=== PATIENT | female | born 1975 ===

== ENCOUNTER 2016-11-28 08:49 | Inpatient (IN) | payer MEDICARE ==
[2016-11-28 09:11] VITALS: BMI 29.2
[2016-11-28 09:25] LABS: BASO % 0.7 % (0.0-2.0); EOS % 0.6 % (0.0-4.0); HEMATOCRIT 37.1 % (34.0-47.0); LYMPH # 0.6 K/uL (1.0-4.3); LYMPH % 11.7 % (20.0-40.0); MEAN CELL VOLUME 94.7 fL (81.0-99.0); MEAN CORPUSCULAR HEMOGLOBIN 31.6 pg (27.0-31.0); MEAN CORPUSCULAR HGB CONC 33.3 g/dL (33.0-37.0); MONO # 0.4 K/uL (0.0-0.8); MONO % 7.7 % (0.0-10.0); WHITE BLOOD COUNT 4.8 K/uL (4.8-10.8)
[2016-11-28 09:27] LABS: CHLORIDE 95 mmol/L (98-107); POTASSIUM 3.4 mmol/L (3.6-5.2); SODIUM 130 mmol/L (132-148)
[2016-11-28 09:30] LABS: ALKALINE PHOSPHATASE 119 U/L (38-126); ALT/SGPT 75 U/L (9-52); AST/SGOT 199 U/L (14-36); BILIRUBIN,TOTAL 1.8 mg/dL (0.2-1.3); BLOOD UREA NITROGEN 10 mg/dL (7-17); CALCIUM 9.4 mg/dl (8.6-10.4); CARBON DIOXIDE 23 mmol/L (22-30); GFR AFRICAN-AMERICAN > 60; GLUCOSE,RANDOM 105 mg/dL (65-105); TOTAL PROTEIN 9.2 g/dL (6.3-8.3)
[2016-11-28 09:31] LABS: ALCOHOL SERUM < 10 mg/dl (0-10)
[2016-11-28 09:59] LABS: RBC URINE 5 /hpf (0-3); URINE BACTERIA MANY (<OCC); URINE BILIRUBIN NEGATIVE (NEGATIVE); URINE BLOOD 1+ (NEGATIVE); URINE COLOR Amber (YELLOW); URINE GLUCOSE (UA) NORMAL (Normal); URINE KETONE 1+ mg/dL (NEGATIVE); URINE LEUKOCYTE ESTERASE 2+ Leu/uL (Negative); URINE PROTEIN 1+ mg/dL (NEGATIVE); WBC URINE 19 /hpf (0-5)
[2016-11-28] MEDS ORDERED: Pantoprazole 40 mg EC Tab PO STA (09:59)
[2016-11-28] MEDS ORDERED: Pantoprazole 40 mg EC Tab PO ONE (10:19)
[2016-11-28 14:16] LABS: CHLORIDE 96 mmol/L (98-107)
[2016-11-28 14:17] LABS: POTASSIUM 3.6 mmol/L (3.6-5.2); SODIUM 129 mmol/L (132-148)
[2016-11-28 14:19] LABS: ALKALINE PHOSPHATASE 112 U/L (38-126); AST/SGOT 174 U/L (14-36); BILIRUBIN,TOTAL 1.6 mg/dL (0.2-1.3); BLOOD UREA NITROGEN 8 mg/dL (7-17); CARBON DIOXIDE 26 mmol/L (22-30); GFR AFRICAN-AMERICAN > 60; TOTAL PROTEIN 8.6 g/dL (6.3-8.3)
[2016-11-28 14:20] LABS: ALT/SGPT 69 U/L (9-52); CALCIUM 9.2 mg/dl (8.6-10.4); GLUCOSE,RANDOM 138 mg/dL (65-105)
--- NOTE | 2016-11-28 16:13 | C.PDOC ---
History Of Present Illness 41 y/o female brought to ED via [facility] for evaluation of suicidal ideation. As per EMS, pt ingested about 10 Tramadol pills last night and attempted to hang herself today. Pt admits to alcohol abuse. Otherwise, denies any active physical complaints at this time. No HI. Time Seen by Provider: 11/28/16 09:11 Chief Complaint (Nursing): Psychiatric Evaluation History Per: Patient History/Exam Limitations: no limitations Onset/Duration Of Symptoms: Days, Gradual Current Symptoms Are (Timing): Still Present Suicide/Self Injury Attempted (Context): Ingestion Severity: None Pain Scale Rating Of: 0 Associated Symptoms: Suicidal Thoughts Involuntary Hold By: None Recent travel outside of the [place]: No Additional History Per: EMS Past Medical History Reviewed: Historical Data, Nursing Documentation, Vital Signs Vital Signs: Last Vital Signs Temp 99.2 F 11/28/16 15:46 Pulse 92 H 11/28/16 15:46 Resp 18 11/28/16 15:46 BP 130/90 11/28/16 15:46 Pulse Ox 100 11/28/16 16:18 - [facility] Procedures DYE HYSTEROSALPINGOGRAM (10/07/99) Family History: States: Unknown Family Hx - Social History Hx Alcohol Use: No Hx Substance Use: No - Immunization History Hx Tetanus Toxoid Vaccination: No Hx Influenza Vaccination: No Hx Pneumococcal Vaccination: No Review Of Systems Except As Marked, All Systems Reviewed And Found Negative. Constitutional: Negative for: Fever, Chills Cardiovascular: Negative for: Chest Pain, Palpitations Respiratory: Negative for: Cough, Shortness of Breath Gastrointestinal: Negative for: Nausea, Vomiting, Abdominal Pain Neurological: Negative for: Headache, Dizziness Psych: Positive for: Suicidal ideation Physical Exam - Physical Exam Appears: Non-toxic, No Acute Distress Skin: Normal Color, Warm, Dry Head: Atraumatic, Normacephalic Eye(s): bilateral: Normal Inspection Oral Mucosa: Moist Neck: Normal ROM, Supple Chest: Symmetrical Cardiovascular: Rhythm Regular, No Murmur Respiratory: Normal Breath Sounds, No Rales, No Rhonchi, No Wheezing Gastrointestinal/Abdominal: Soft, No Tenderness Extremity: Normal ROM, No Deformity Neurological/Psych: Oriented x3, Normal Speech ED Course And Treatment - Laboratory Results Result Diagrams: 11/28/16 09:14 11/28/16 14:01 ECG: Interpreted By Me, Viewed By Me ECG Rhythm: Sinus Rhythm ECG Interpretation: No Acute Changes Rate From EC (bpm) O2 Sat by Pulse Oximetry: 100 (RA) Pulse Ox Interpretation: Normal Progress Note: Blood work, UA, EKG ordered and reviewed. Patient was given Pantoprazole, and Macrobid. On re-eval, pt is resting comfortably, no acute distress. Disposition - Disposition Disposition: HOSPITALIZED Disposition Time: 15:00 Condition: STABLE - Clinical Impression Clinical Impression: Depression, UTI (urinary tract infection), Overdose - Scribe Statement The provider has reviewed the documentation as recorded by the Scribe Jenna Downing All medical record entries made by the Scribe were at my direction and personally dictated by me. I have reviewed the chart and agree that the record accurately reflects my personal performance of the history, physical exam, medical decision making, and the department course for this patient. I have also personally directed, reviewed, and agree with the discharge instructions and disposition.
--- NOTE | 2016-11-28 16:36 | PCM.BM ---
<Mimi Sosa - Last Filed: 11/28/16 16:34> Treatment Plan Problems - Problems identified on initial assessmt Depression Date Initiated: 11/28/16 Time Initiated: 16:30 Assessment reference: NA Status: Active Suicidal ideation Date Initiated: 11/28/16 Time Initiated: 16:30 Assessment reference: NA Status: Active Treatment assets and liabiliti Patient Assests: cooperative, ADL independent, negotiates basic needs Patient Liabilities: substance abuse - Milieu Protocol Maintain good personal hygiene: daily Encourage regular showers, daily Remind patient to perform daily oral care, daily Assist patient to perform ADL's Maintain personal safety: every shift Educate patient to report safety concerns to staff, every shift Monitor environment for contraband/sharps Medication safety: Monitor for expected outcome, potential side effects: every shift, Assess barriers to learning: every shift, Assess readiness for medication education: every shift <Reggie Teresa - Last Filed: 11/28/16 20:33> - Diagnosis (1) Major depressive disorder, recurrent severe without psychotic features Status: Acute Interventions: Assess/at just medications daily and/or as needed See patient on and individual namom1h per week to assess status of hallucinations and delusions Discussed risks, benefits, side effects and alternatives of medications. 11/28/16 20:33 (2) Alcohol use disorder, severe, dependence Status: Acute Interventions: Assess 7x/week regarding severity of withdrawal Educated regarding risks, benefits, side effects and alternatives of medications Used motivational interview for abstinence Used CBT for relapse prevention Medication management for withdrawal symptoms Encouraged medication assisted treatment 11/28/16 20:34 (3) Nicotine use disorder Status: Acute Interventions: Assess 7x/week regarding severity of withdrawal Educated regarding risks, benefits, side effects and alternatives of medications Used motivational interview for abstinence Used CBT for relapse prevention Medication management for withdrawal symptoms Encouraged medication assisted treatment 11/28/16 20:34 <Mary Solomon - Last Filed: 12/01/16 11:06> Family Contact Family involvement: Family/SO is involved Family contact: Patient declines to allow family contact at present - Outside Agency Agency 1 Care involvment: Information-sharing Agency contact name: [facility]-outpatient Agency contact number: - Goals for Treatment Patient goals for treatment: "I want to go home." Discharge/Continuing Care - Education Needs Education Needs: Patient Medication, Patient Coping Skills - Discharge Discharge Criteria: Tolerates medication w/o severe side effects Discharge to:: Home - Treatment Team Participation Discussed with Family/SO: No Was Patient/Family/SO present at Treatment Team Meeting: Yes <Eleni Contreras - Last Filed: 12/01/16 11:12> - Diagnosis (1) Depression Status: Acute Interventions: 12/01/16 11:11 * Assess/adjust medications daily and /or as needed * See patient on an individual basis 7x/week to assess level of depressive behaviors and stability * Discuss risks, benefits, side effects and alternatives of medications * (2) Alcohol use disorder, severe, dependence Status: Acute Interventions: Assess 7x/week regarding severity of withdrawal Educated regarding risks, benefits, side effects and alternatives of medications Used motivational interview for abstinence Used CBT for relapse prevention Medication management for withdrawal symptoms Encouraged medication assisted treatment 11/28/16 20:34
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
[2016-11-29] MEDS: Pantoprazole 40 mg EC Tab PO SCH (09:20)
--- NOTE | 2016-11-29 12:58 | PCM.PYCHPN ---
Psychiatric Progress Note - Psychiatric Progress Note Patient seen today, length of contact: 15 minute Patient Chief Complaint: I'm feeling little better Problems Identified/Issues Discussed: Patient seen. Chart reviewed. Case discussed with the staff. Issues related to illness and treatment were discussed with the patient. Reported compliant with treatment with no adverse affects. Tolerating treatment very well. Reported feeling little better, attending group and other activities on the unit. Also socializing with other patients that's helping patient. At the time of evaluation, patient was awake alert oriented 3, had no delusions , no auditory or visual hallucinations, no suicidal ideations or homicidal ideations. Medical Problems: UTI Diagnostic Results: Reviewed DSM 5 Symptoms Update: Some improvement with treatment Medication Change: No Medical Record Reviewed: Yes Mental Status Examination - Cognitive Function Orientation: Person, Place, Situation, Time Memory: Intact Attention: WNL Concentration: WNL Association: WNL Fund of Knowledge: [facility] Decription of patient's judgement and insights: Fair - Mood Mood: Depressed - Affect Affect: Depressed - Speech Speech: Appropriate - Formal Thought Process Formal Thought Process: No Impairment Psychotic Thoughts and Behaviors: None - Suicidal Ideation Suicidal Ideation: No - Homicidal Ideation Homicidal Ideation: No Goal/Treatment Plan - Goal/Treatment Plan Need for Continued Stay: Remain at risks for inpatient hospitalization, Discharge may exacerbated symptoms, Severe functional impairment Progress Toward Problem(s) and Goals/Treatment Plan: Patient education Supportive therapy Continue treatment as before Estimated Date of D/C: 12/05/16 - Smoking Cessation Smoking Cessation Initiated: Yes
[2016-11-30] MEDS: Pantoprazole 40 mg EC Tab PO SCH (09:27)
--- NOTE | 2016-11-30 13:50 | PCM.PYCHPN ---
Psychiatric Progress Note - Psychiatric Progress Note Patient seen today, length of contact: 15 minute Patient Chief Complaint: I'm feeling much better Problems Identified/Issues Discussed: Patient seen. Chart reviewed. Case discussed with the staff. Issues related to illness and treatment were discussed with the patient. Reported compliant with treatment with no adverse affects. Tolerating treatment very well. Reported feeling much better, attending group and other activities on the unit. Also socializing with other patients that's helping patient. Better sleep and mood. At the time of evaluation, patient was awake alert oriented 3, had no delusions , no auditory or visual hallucinations, no suicidal ideations or homicidal ideations. Medical Problems: UTI Diagnostic Results: Reviewed DSM 5 Symptoms Update: Improving with treatment Medication Change: No Medical Record Reviewed: Yes Mental Status Examination - Cognitive Function Orientation: Person, Place, Situation, Time Memory: Intact Attention: WNL Concentration: WNL Association: WNL Fund of Knowledge: [facility] Decription of patient's judgement and insights: Fair - Mood Mood: Depressed (Less than before) - Affect Affect: Depressed - Speech Speech: Appropriate - Formal Thought Process Formal Thought Process: No Impairment Psychotic Thoughts and Behaviors: None - Suicidal Ideation Suicidal Ideation: No - Homicidal Ideation Homicidal Ideation: No Goal/Treatment Plan - Goal/Treatment Plan Need for Continued Stay: Remain at risks for inpatient hospitalization, Discharge may exacerbated symptoms, Severe functional impairment Progress Toward Problem(s) and Goals/Treatment Plan: Patient education Supportive therapy Continue treatment as before Estimated Date of D/C: 12/05/16
[2016-12-01] MEDS: Pantoprazole 40 mg EC Tab PO SCH (09:51)
--- NOTE | 2016-12-01 10:14 | PCM.PYCHPN ---
Psychiatric Progress Note - Psychiatric Progress Note Patient seen today, length of contact: 15 minute Patient Chief Complaint: "I feel a little better" Problems Identified/Issues Discussed: Pt is seen, chart reviewed, case discussed with staff. Pt is compliant with medications and reports no side effects. Pt currently reports to experience "a little bit" of tremors. Otherwise she feels well and states her mood is improving. Symptoms are improving but pt needs more time to stabilize. Support and psychoeducation given, CBT and IA used briefly. After care discussed. After discharge she would like to go to outpatient program at [facility] where she can follow up for both her depression and maintenance of alcohol abstinence. Medication Change: No Medical Record Reviewed: Yes Mental Status Examination - Cognitive Function Orientation: Person, Place, Situation, Time Memory: Intact Attention: WNL Concentration: WNL Association: WNL Fund of Knowledge: WNL - Mood Mood: Neutral - Affect Affect: Constricted - Speech Speech: Appropriate - Formal Thought Process Formal Thought Process: No Impairment - Suicidal Ideation Suicidal Ideation: No - Homicidal Ideation Homicidal Ideation: No Goal/Treatment Plan - Goal/Treatment Plan Need for Continued Stay: Remain at risks for inpatient hospitalization, Discharge may exacerbated symptoms, Severe functional impairment Progress Toward Problem(s) and Goals/Treatment Plan: Continue medications as prescribed Supportive therapy and psychoeducation Attend groups and activities Attend self-help groups [place] for abstinence CBT for relapse prevention Refer to after care Estimated Date of D/C: 12/05/16
--- NOTE | 2016-12-01 12:44 | CARD ---
APPROVED REPORT EKG Measurement Heart [id number] <Conclusion> Normal sinus rhythm Possible Anterior infarct, age undetermined Abnormal ECG
[2016-12-01 14:13] LABS: BILIRUBIN,DIRECT 0.5 mg/dL (0.0-0.4); BILIRUBIN,TOTAL 0.8 mg/dL (0.2-1.3); TOTAL PROTEIN 7.8 g/dL (6.3-8.3)
[2016-12-02 07:21] VITALS: BP 95/65; PULSE 79; RESP 20; TEMP 97.2; O2SAT 98
[2016-12-02] MEDS: Pantoprazole 40 mg EC Tab PO SCH (09:31)
[2016-12-02] MEDS ORDERED: Pneumococcal 23-Valent Vaccine IM ONE (10:00)
[2016-12-02] MEDS ORDERED: Influenza Vaccine 60 mcg/0.5 mL SYR (4YR UP) IM ONE (10:00)
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
== END 2016-12-02 11:00 | disposition home or self-care (01) | DRG 885 ==
LOC: C.ER 08:49 → C.5E 15:17
PROC: GZ56ZZZ Individual Psychotherapy, Supportive (ICD-10-PCS; principal; 2016-11-28)
DX: F33.2 Major depressive disorder, recurrent severe without psychotic features (principal); R45.851 Suicidal ideations; N39.0 Urinary tract infection, site not specified; F10.20 Alcohol dependence, uncomplicated; F17.210 Nicotine dependence, cigarettes, uncomplicated; Z98.84 Bariatric surgery status; F19.10 Other psychoactive substance abuse, uncomplicated; F14.10 Cocaine abuse, uncomplicated

== ENCOUNTER 2018-05-12 03:39 | Inpatient (IN) | payer MEDICARE, OTHER ==
[2018-05-12 03:40] VITALS: BMI 29.2
--- NOTE | 2018-05-12 04:29 | C.PDOC ---
History Of Present Illness 43 year old female with Hx of liver cirrhosis and HTN comes in from home for reported abdominal distention. Reports she feels dizzy/lightheaded. Patient gets frequent paracentesis. Patient in no acute distress in the ER. Denies fever or other complaints. Time Seen by Provider: 05/12/18 04:04 Chief Complaint (Nursing): GI Problem History Per: Patient History/Exam Limitations: no limitations Onset/Duration Of Symptoms: Days Current Symptoms Are (Timing): Still Present Associated Symptoms: denies: Fever Exacerbating Factors: None Alleviating Factors: None Recent travel outside of the [place]: No Abnormal Vaginal Bleeding: No Past Medical History Reviewed: Historical Data, Nursing Documentation, Vital Signs Vital Signs: Last Vital Signs Temp 97.3 F L 05/12/18 03:56 Pulse 104 H 05/12/18 03:56 Resp 22 05/12/18 03:56 BP 101/68 05/12/18 03:56 Pulse Ox 96 05/12/18 03:56 - Medical History PMH: Depression Denies: Diabetes, Hepatitis, HIV, HTN, Seizures, Sexually Transmitted Disease - [facility] Procedures DYE HYSTEROSALPINGOGRAM (10/07/99) INDIVIDUAL PSYCHOTHERAPY, SUPPORTIVE (11/28/16) Family History: States: Unknown Family Hx - Social History Hx Alcohol Use: No Hx Substance Use: Yes - Immunization History Hx Tetanus Toxoid Vaccination: No Hx Influenza Vaccination: No Hx Pneumococcal Vaccination: No Review Of Systems Constitutional: Negative for: Fever, Chills Cardiovascular: Positive for: Light Headedness. Negative for: Chest Pain, Palpitations Respiratory: Negative for: Cough, Shortness of Breath Gastrointestinal: Positive for: Other (Distention). Negative for: Nausea, Vomiting Genitourinary: Negative for: Dysuria, Hematuria Neurological: Negative for: Weakness, Numbness Physical Exam - Physical Exam Appears: Non-toxic Skin: Normal Color, Warm Head: Atraumatic, Normacephalic Eye(s): bilateral: Normal Inspection Oral Mucosa: Moist Neck: Normal, Supple Chest: Symmetrical, No Tenderness Cardiovascular: Rhythm Regular Respiratory: Normal Breath Sounds, No Rales, No Rhonchi, No Wheezing Gastrointestinal/Abdominal: Soft, No Tenderness, Distention Back: No CVA Tenderness Neurological/Psych: Oriented x3, Normal Speech ED Course And Treatment - Laboratory Results Result Diagrams: 05/14/18 07:14 05/14/18 07:14 O2 Sat by Pulse Oximetry: 96 (Room air) Pulse Ox Interpretation: Normal Medical Decision Making Medical Decision Making: suspect acities - abd sof t no ttp Plan: * EKG * Blood work * CXR * UA will obs for paracentsis. Disposition - Disposition Disposition: HOSPITALIZED Disposition Time: 07:00 Condition: STABLE - Clinical Impression Clinical Impression: Ascites - Scribe Statement The provider has reviewed the documentation as recorded by the Scribamauri Polanco All medical record entries made by the Scribe were at my direction and personally dictated by me. I have reviewed the chart and agree that the record accurately reflects my personal performance of the history, physical exam, medical decision making, and the department course for this patient. I have also personally directed, reviewed, and agree with the discharge instructions and disposition. Decision To Admit - Pt Status Changed To: Hospital Disposition Of: Observation - . Bed Request Type: Regular Admitting Physician: Kvng Downing Patient Diagnosis: Ascites
[2018-05-12 04:37] LABS: BASO # 0.2 K/uL (0.0-0.2); BASO % 1.7 % (0.0-2.0); EOS # 0.1 K/uL (0.0-0.7); EOS % 1.3 % (0.0-4.0); HEMOGLOBIN 11.5 g/dL (11.0-16.0); LYMPH # 2.5 K/uL (1.0-4.3); LYMPH % 25.6 % (20.0-40.0); MEAN CELL VOLUME 102.4 fL (81.0-99.0); MEAN CORPUSCULAR HEMOGLOBIN 33.4 pg (27.0-31.0); MEAN CORPUSCULAR HGB CONC 32.7 g/dL (33.0-37.0); MEAN PLATELET VOLUME 7.2 fL (7.2-11.7); MONO # 1.2 K/uL (0.0-0.8); MONO % 12.6 % (0.0-10.0); NEUT # 5.7 K/uL (1.8-7.0); NEUT % 58.8 % (50.0-75.0); RBC 3.43 Mil/uL (3.80-5.20); RED CELL DISTRIBUTION WIDTH 18.3 % (11.5-14.5); WHITE BLOOD COUNT 9.6 K/uL (4.8-10.8)
[2018-05-12 04:53] LABS: INR 1.2; PROTHROMBIN TIME 13.2 SECONDS (9.7-12.2)
[2018-05-12 05:05] LABS: ALB/GLOB RATIO 0.7 (1.0-2.1); ALBUMIN 2.5 g/dL (3.5-5.0); ALT/SGPT 61 U/L (9-52); AST/SGOT 85 U/L (14-36); BLOOD UREA NITROGEN 17 mg/dL (7-17); CALCIUM 8.5 mg/dl (8.6-10.4); GFR NON-AFRICAN AMERICAN > 60; LIPASE 216 U/L (23-300)
[2018-05-12 05:16] LABS: B-TYPE NATRIURETIC PEPTIDE 283 pg/mL (0-450)
[2018-05-12] MEDS: Pantoprazole 40 mg EC Tab PO SCH (09:26)
[2018-05-12] MEDS ORDERED: Lidocaine 2% MPF (5 ml) Inj ONE (09:52)
[2018-05-12] MEDS ORDERED: Enoxaparin 40 mg Syringe SC SCH (10:00)
--- NOTE | 2018-05-12 10:20 | PCM.SURG1 ---
Surgeon's Initial Post Op Note - Surgeon's Notes Surgeon: Octaviano Razo MD Corporate Paralegal: NONE Type of Anesthesia: Local Pre-Operative Diagnosis: Ascites, pain Operative Findings: US showed large amount of ascites Post-Operative Diagnosis: Ascites, pain Operation Performed: US guided paracentesis and removal of 8 liters of yellow fluid Specimen/Specimens Removed: 8 liters Estimated Blood Loss: EBL {In ML}: 0 Blood Products Given: N/A Drains Used: No Drains Post-Op Condition: Fair Date of Surgery/Procedure: 05/12/18 Time of Surgery/Procedure: 10:19
[2018-05-12] MEDS: Simethicone 80 mg Chewtab PO SCH ×2 (10:57→17:50)
--- NOTE | 2018-05-12 11:15 | RAD ---
HISTORY: chest pain COMPARISON: None available TECHNIQUE: Chest, one view. FINDINGS: Examination limited by habitus and hypoinflation. LUNGS: Mild bibasilar atelectasis. No focal consolidation. Please note that chest x-ray has limited sensitivity for the detection of pulmonary masses. PLEURA: No significant pleural effusion identified. No definite pneumothorax . CARDIOVASCULAR: Heart size appears within normal limits. No significant atherosclerotic calcifications identified. OSSEOUS STRUCTURES: Degenerative changes. VISUALIZED UPPER ABDOMEN: Unremarkable. OTHER FINDINGS: None. IMPRESSION: Marked hypoinflation. Mild bibasilar atelectasis.
--- NOTE | 2018-05-12 14:42 | US ---
Date of Procedure: 05/12/2018 PROCEDURE: Ultrasound-guided paracentesis, CPT 26096 Medications: 7 cc 1% Lidocaine HISTORY: Ascites, abdominal pain, cirrhosis TECHNIQUE: Following informed consent , the patient was placed supine on the stretcher and the site was marked. A limited abdominal ultrasound was performed that showed a large amount of intra-abdominal fluid. Procedural time out was called and the Pt's abdomen was marked and prepped and draped in the usual sterile fashion. Ultrasound-guided large volume paracentesis performed. A total of 8 liters of straw colored fluid was removed without complication. IMPRESSION: Ultrasound-guided large volume paracentesis.
--- NOTE | 2018-05-12 19:34 | CP.PCM.HP ---
Past Patient History - Infectious Disease Hx of Infectious Diseases: None - Past Social History Smoking Status: Heavy Smoker > 10 Cigarettes Daily - CARDIAC Hx Hypertension: Yes - PULMONARY Hx Tuberculosis: No - NEUROLOGICAL Hx Seizures: No - HEMATOLOGICAL/ONCOLOGICAL Hx Human Immunodeficiency Virus (HIV): No - GASTROINTESTINAL Hx Liver Failure: Yes (liver cirrhosis) - GENITOURINARY/GYNECOLOGICAL Hx Sexually Transmitted Disorders: No - PSYCHIATRIC Hx Depression: Yes Hx Substance Use: Yes - SURGICAL HISTORY Hx Surgeries: Yes Hx Gastric Bypass Surgery: Yes Hx Orthopedic Surgery: Yes (lt hand sx) Other/Comment: Hx of gastric bypass. - ANESTHESIA Hx Anesthesia: Yes Hx Anesthesia Reactions: No Hx Malignant Hyperthermia: No Meds Allergies/Adverse Reactions: Allergies Allergy/AdvReac Type Severity Reaction Status Date / Time iodine Allergy Mild Verified 05/12/18 04:03 Physical Exam - Constitutional Appears: Well - Head Exam Head Exam: ATRAUMATIC, NORMAL INSPECTION, NORMOCEPHALIC - Eye Exam Eye Exam: EOMI, Normal appearance, PERRL Pupil Exam: NORMAL ACCOMODATION, PERRL - ENT Exam ENT Exam: Mucous Membranes Moist, Normal Exam - Neck Exam Neck exam: Positive for: Normal Inspection - Respiratory Exam Respiratory Exam: Decreased Breath Sounds - Cardiovascular Exam Cardiovascular Exam: REGULAR RHYTHM, +S1, +S2 - GI/Abdominal Exam GI & Abdominal Exam: Diminished Bowel Sounds, Soft - Rectal Exam Rectal Exam: Deferred Results - Vital Signs Recent Vital Signs: Last Vital Signs Temp 97.7 F 05/12/18 16:45 Pulse 78 05/12/18 16:45 Resp 20 05/12/18 16:45 BP 94/59 L 05/12/18 16:45 Pulse Ox 99 05/12/18 16:45 - Labs Result Diagrams: 05/12/18 04:32 05/12/18 04:32 Labs: Laboratory Results - last 24 hr 05/12/18 05/12/18 05/12/18 04:32 04:32 04:32 WBC 9.6 D RBC 3.43 L Hgb 11.5 Hct 35.1 MCV 102.4 H D MCH 33.4 H MCHC 32.7 L RDW 18.3 H Plt Count 220 MPV 7.2 Neut % (Auto) 58.8 Lymph % (Auto) 25.6 [place] % (Auto) 12.6 H Eos % (Auto) 1.3 Baso % (Auto) 1.7 Neut # (Auto) 5.7 Lymph # (Auto) 2.5 [place] # (Auto) 1.2 H Eos # (Auto) 0.1 Baso # (Auto) 0.2 PT 13.2 H INR 1.2 APTT 35 H Sodium 128 L Potassium 3.8 Chloride 101 Carbon Dioxide 22 Anion Gap 9 L BUN 17 Creatinine 1.0 Est GFR ( Amer) > 60 Est GFR (Non-Af Amer) > 60 Random Glucose 90 D Calcium 8.5 L Total Bilirubin 1.4 H AST 85 H D ALT 61 H D Alkaline Phosphatase 263 H D Troponin I < 0.0120 NT-Pro-B Natriuret Pep 283 Total Protein 6.0 L Albumin 2.5 L D Globulin 3.6 Albumin/Globulin Ratio 0.7 L Lipase 216
[2018-05-12] MEDS ORDERED: PYRIDOXINE HCL PO SCH (22:00)
[2018-05-12] MEDS ORDERED: MELATONIN PO SCH (22:00)
[2018-05-13 03:54] VITALS: RESP 20
[2018-05-13 07:50] LABS: BASO % 0.7 % (0.0-2.0); EOS # 0.1 K/uL (0.0-0.7); EOS % 1.1 % (0.0-4.0); HEMOGLOBIN 10.6 g/dL (11.0-16.0); MEAN CORPUSCULAR HEMOGLOBIN 34.6 pg (27.0-31.0); MEAN CORPUSCULAR HGB CONC 33.9 g/dL (33.0-37.0); MEAN PLATELET VOLUME 7.2 fL (7.2-11.7); MONO # 0.8 K/uL (0.0-0.8); MONO % 11.2 % (0.0-10.0); NEUT # 4.4 K/uL (1.8-7.0); RBC 3.06 Mil/uL (3.80-5.20); RED CELL DISTRIBUTION WIDTH 18.7 % (11.5-14.5); WHITE BLOOD COUNT 7.4 K/uL (4.8-10.8)
[2018-05-13 08:00] LABS: ALB/GLOB RATIO 0.6 (1.0-2.1); ALBUMIN 1.9 g/dL (3.5-5.0); ALT/SGPT 67 U/L (9-52); AST/SGOT 108 U/L (14-36); BLOOD UREA NITROGEN 18 mg/dL (7-17); CALCIUM 8.3 mg/dl (8.6-10.4); GFR NON-AFRICAN AMERICAN 54
[2018-05-13] MEDS: Simethicone 80 mg Chewtab PO SCH ×2 (09:44→17:24)
[2018-05-13] MEDS: Pantoprazole 40 mg EC Tab PO SCH (09:45)
--- NOTE | 2018-05-13 12:58 | CP.PCM.PN ---
Subjective - Date & Time of Evaluation Date of Evaluation: 05/13/18 - Subjective Subjective: patient seen and examined today no nausea, vomiting, SOB, dizzines, diarrhea no family bedside although pt is comfortable with distention and pt says she gets asicitic tapping done every 3 days in past Objective - Vital Signs/Intake and Output Vital Signs (last 24 hours): Temp Pulse Resp BP Pulse Ox 97.7 F 86 20 94/62 L 96 05/13/18 08:29 05/13/18 08:29 05/13/18 08:29 05/13/18 08:29 05/13/18 08:29 Intake and Output: 05/13/18 05/13/18 06:59 18:59 Output Total 200 Balance -200 - Medications Medications: Current Medications Acetaminophen (Tylenol 325mg Tab) 650 mg PO Q6 PRN PRN Reason: Pain, moderate (4-7) Last Admin: 05/12/18 23:48 Dose: 650 mg Ascorbic Acid (Vitamin C 250 Mg Tab) 250 mg PO DAILY [facility] Last Admin: 05/13/18 09:44 Dose: 250 mg Enoxaparin Sodium (Lovenox) 40 mg SC DAILY [facility] Last Admin: 05/12/18 09:27 Dose: 40 mg Folic Acid (Folic Acid) 1 mg PO DAILY [facility] Last Admin: 05/13/18 09:45 Dose: 1 mg Furosemide (Lasix) 40 mg PO DAILY [facility] Last Admin: 05/12/18 09:25 Dose: 40 mg Meclizine HCl (Antivert) 25 mg PO Q8 [facility] Last Admin: 05/13/18 06:08 Dose: 25 mg Nicotine (Nicoderm Cq) 1 patch TD DAILY [facility] Last Admin: 05/13/18 09:46 Dose: 1 patch Pantoprazole Sodium (Protonix Ec Tab) 40 mg PO DAILY [facility] Last Admin: 05/13/18 09:45 Dose: 40 mg Propranolol HCl (Inderal) 10 mg PO DAILY [facility] Last Admin: 05/13/18 09:46 Dose: Not Given Simethicone (Mylicon Chew Tab) 80 mg PO BID [facility] Last Admin: 05/13/18 09:44 Dose: 80 mg Spironolactone (Aldactone) 50 mg PO BID [facility] Last Admin: 05/13/18 09:46 Dose: Not Given Vitamin B Complex/Folic Acid (Berroca) 1 tab PO DAILY [facility] Last Admin: 05/13/18 09:44 Dose: 1 tab - Labs Labs: 05/13/18 07:38 05/13/18 07:38 PT 13.2 SECONDS (9.7-12.2) H 05/12/18 04:32 INR 1.2 05/12/18 04:32 APTT 35 SECONDS (21-34) H 05/12/18 04:32 - Constitutional Appears: Well - Head Exam Head Exam: ATRAUMATIC, NORMAL INSPECTION, NORMOCEPHALIC - Eye Exam Eye Exam: EOMI, Normal appearance, PERRL Pupil Exam: NORMAL ACCOMODATION, PERRL - ENT Exam ENT Exam: Mucous Membranes Moist, Normal Exam - Neck Exam Neck Exam: Full ROM, Normal Inspection. absent: Lymphadenopathy - Respiratory Exam Respiratory Exam: Decreased Breath Sounds - Cardiovascular Exam Cardiovascular Exam: REGULAR RHYTHM, +S1, +S2 - GI/Abdominal Exam GI & Abdominal Exam: Soft, Diminished Bowel Sounds - Rectal Exam Rectal Exam: Deferred Assessment and Plan - Assessment and Plan (Free Text) Plan: patient evaluated today vitals reviewed radiology reviewed labs reviewed medications reviewed aldactone antivert berroca folic acid inderal lasix lovenox mylicon chewable tablet nidocerm cq protonix ec tab tylenol 325mg tab vitamin c 250mg tab Patient has stopped drinking alcohol since last October is almost more than 6 months alcohol free Case discussed with Dr. Olvera we note as patient needs liver transplant patient has an appointment with the PMD in the next week Status post removal of ascitic fluid Sodium is 130 The patient liver cirrhosis score KARLA D is 19 Patient received albumin replacement today Patient is again going for repeat paracentesis Patient is on diuretics Ultrasound reveals no mass Follow-up with PMD and GI Follow-up with IR for acetic stepping Extensive discussion done with the patient's
--- NOTE | 2018-05-13 13:31 | CT ---
Date of service: 05/13/2018 PROCEDURE: CT HEAD WITHOUT CONTRAST. HISTORY: vertigo COMPARISON: None available. TECHNIQUE: Axial computed tomography images were obtained through the head/brain without intravenous contrast. Radiation dose: Total exam DLP = 908.47 mGy-cm. This CT exam was performed using one or more of the following dose reduction techniques: Automated exposure control, adjustment of the mA and/or kV according to patient size, and/or use of iterative reconstruction technique. FINDINGS: HEMORRHAGE: No intracranial hemorrhage. BRAIN: Diffuse atrophy with prominence of the ventricles and sulci noted. No mass effect or edema. Intracranial atherosclerosis. Scattered periventricular and subcortical white matter hypodensities, which are nonspecific, but often seen with chronic microvascular ischemic disease. Please note that MRI with diffusion imaging is more sensitive in the detection of acute ischemic event. VENTRICLES: No hydrocephalus. CALVARIUM: Unremarkable. PARANASAL SINUSES: Unremarkable as visualized. No significant inflammatory changes. MASTOID AIR CELLS: Unremarkable as visualized. No inflammatory changes. OTHER FINDINGS: None. IMPRESSION: No acute intracranial pathology identified. Additional findings as above.
[2018-05-13] MEDS: Albumin Human 25% (12.5 gm/50 ml) IV SCH ×3 (15:47→16:56)
[2018-05-13 17:20] LABS: INR 1.3; PROTHROMBIN TIME 14.7 SECONDS (9.7-12.2)
[2018-05-13 17:33] LABS: BILIRUBIN,DIRECT 0.6 mg/dL (0.0-0.4)
[2018-05-13 17:34] LABS: IRON 25 ug/dL (37-170)
--- NOTE | 2018-05-13 17:41 | CP.PCM.CON ---
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 Patient notes fluid build up of abdomen and leg swelling over the last week. Notes similar occurrences since 10/2016 when diagnosed with cirrhosis for which she follows at [facility] transplant center and is undergoing liver pre-transplantation evaluation and that her MELD is 11 in the last six months. Patient endorses having paracenteses every three days and that she missed her appointment for repeat paracentesis a few days ago. Admits to eating pre-packaged and canned foods daily. Notes altered sleep/wake cycles that she attributes to right rib cage pain with abdominal distension interfering with ability to sleep well. Endorses two to three formed stools daily. Denies nausea, vomiting, hematemesis, shortness of breath, abdominal pain, diarrhea, melena, c onstipation, hematochezia, unintentional weight loss, confusion, or yellowing of skin. Endorses no prior EGD or colonoscopy. Family History - denies HCC, stomach cancer, liver cancer Social History- endorses sobriety since 10/2016, tobacco use; denies present use of illicit drugs; prior cocaine and marijuana Surgical History- left hand and right leg interventions, gastric bypass Review of Systems - Review of Systems Review of Systems: 12-point review of systems negative except for as above Past Patient History - Infectious Disease Hx of Infectious Diseases: None - Past Medical History & Family History Past Medical History?: Yes - Past Social History Smoking Status: Light Smoker < 10 Cigarettes Daily - CARDIAC Hx Hypertension: No Hx Hypotension: Yes - PULMONARY Hx Asthma: No Hx Bronchitis: Yes Hx Chronic Obstructive Pulmonary Disease (COPD): No Hx Emphysema: No Hx Pneumonia: Yes Hx Pulmonary Edema: No Hx Pulmonary Embolism: No Hx Tuberculosis: No - NEUROLOGICAL Hx Seizures: Yes - RENAL Hx Chronic Kidney Disease: No - ENDOCRINE/METABOLIC Hx Endocrine Disorders: No - HEMATOLOGICAL/ONCOLOGICAL Hx Anemia: Yes Hx Human Immunodeficiency Virus (HIV): No - MUSCULOSKELETAL/RHEUMATOLOGICAL Hx Falls: Yes Hx Fractures: Yes (right leg) Hx Unsteady Gait: Yes - GASTROINTESTINAL Hx Bowel Surgery: No Hx Liver Failure: Yes (liver cirrhosis) - GENITOURINARY/GYNECOLOGICAL Hx Sexually Transmitted Disorders: No - PSYCHIATRIC Hx Depression: Yes Hx Substance Use: Yes - SURGICAL HISTORY Hx Surgeries: Yes Hx Gastric Bypass Surgery: Yes Hx Orthopedic Surgery: Yes (lt hand sx) Other/Comment: Hx of gastric bypass. - ANESTHESIA Hx Anesthesia: Yes Hx Anesthesia Reactions: No Hx Malignant Hyperthermia: No Meds Allergies/Adverse Reactions: Allergies Allergy/AdvReac Type Severity Reaction Status Date / Time iodine Allergy Mild Verified 05/12/18 04:03 - Medications Medications: Current Medications Acetaminophen (Tylenol 325mg Tab) 650 mg PO Q6 PRN PRN Reason: Pain, moderate (4-7) Last Admin: 05/12/18 23:48 Dose: 650 mg Ascorbic Acid (Vitamin C 250 Mg Tab) 250 mg PO DAILY [facility] Last Admin: 05/13/18 09:44 Dose: 250 mg Enoxaparin Sodium (Lovenox) 40 mg SC DAILY [facility] Last Admin: 05/12/18 09:27 Dose: 40 mg Folic Acid (Folic Acid) 1 mg PO DAILY [facility] Last Admin: 05/13/18 09:45 Dose: 1 mg Furosemide (Lasix) 40 mg PO DAILY [facility] Meclizine HCl (Antivert) 25 mg PO Q8 [facility] Last Admin: 05/13/18 13:41 Dose: 25 mg Nicotine (Nicoderm Cq) 1 patch TD DAILY [facility] Last Admin: 05/13/18 09:46 Dose: 1 patch Pantoprazole Sodium (Protonix Ec Tab) 40 mg PO DAILY [facility] Last Admin: 05/13/18 09:45 Dose: 40 mg Propranolol HCl (Inderal) 10 mg PO DAILY [facility] Last Admin: 05/13/18 09:46 Dose: Not Given Simethicone (Mylicon Chew Tab) 80 mg PO BID [facility] Last Admin: 05/13/18 17:24 Dose: Not Given Spironolactone (Aldactone) 50 mg PO BID [facility] Last Admin: 05/13/18 17:23 Dose: Not Given Vitamin B Complex/Folic Acid (Berroca) 1 tab PO DAILY [facility] Last Admin: 05/13/18 09:44 Dose: 1 tab Physical Exam - Constitutional Appears: Non-toxic, No Acute Distress, Chronically Ill - Head Exam Head Exam: ATRAUMATIC, NORMOCEPHALIC - Eye Exam Eye Exam: EOMI, PERRL. absent: Scleral icterus Pupil Exam: PERRL. absent: Miosis, Mydriatic - ENT Exam ENT Exam: Mucous Membranes Moist, Normal Oropharynx - Neck Exam Neck exam: Positive for: Full Rom, Normal Inspection - Respiratory Exam Respiratory Exam: Clear to Auscultation Bilateral. absent: Rales, Rhonchi, Wheezes - Cardiovascular Exam Cardiovascular Exam: RRR, +S1, +S2. absent: Gallop, Rubs - GI/Abdominal Exam GI & Abdominal Exam: Distended, Normal Bowel Sounds, Soft. absent: Firm, Guarding, Organomegaly, Rebound, Rigid, Tenderness Additional comments: fluid wave present - Extremities Exam Additional comments: 2+ B/L LE pitting edema - Neurological Exam Neurological exam: Alert, Oriented x3 Additional comments: mild asterixis - Psychiatric Exam Psychiatric exam: Normal Affect, Normal Mood - Skin Skin Exam: Dry, Intact, Warm Additional comments: jaundice Results - Vital Signs Recent Vital Signs: Last Vital Signs Temp 97.6 F 05/13/18 16:40 Pulse 91 H 05/13/18 16:40 Resp 20 05/13/18 16:40 BP 92/60 L 05/13/18 16:40 Pulse Ox 94 L 05/13/18 16:40 - Labs Result Diagrams: 05/13/18 07:38 05/13/18 07:38 Labs: Laboratory Results - last 24 hr 05/13/18 05/13/18 05/13/18 07:38 07:38 17:03 WBC 7.4 RBC 3.06 L Hgb 10.6 L Hct 31.2 L MCV 102.0 H MCH 34.6 H MCHC 33.9 RDW 18.7 H Plt Count 175 MPV 7.2 Neut % (Auto) 60.0 Lymph % (Auto) 27.0 [place] % (Auto) 11.2 H Eos % (Auto) 1.1 Baso % (Auto) 0.7 Neut # (Auto) 4.4 Lymph # (Auto) 2.0 [place] # (Auto) 0.8 Eos # (Auto) 0.1 Baso # (Auto) 0.0 PT INR Sodium 129 L Potassium 3.6 Chloride 100 Carbon Dioxide 25 Anion Gap 8 L BUN 18 H Creatinine 1.1 Est GFR ( Amer) > 60 Est GFR (Non-Af Amer) 54 Random Glucose 103 Calcium 8.3 L Total Bilirubin 1.7 H Direct Bilirubin 0.6 H AST 108 H D ALT 67 H Alkaline Phosphatase 202 H D Total Protein 5.0 L Albumin 1.9 L D Globulin 3.1 Albumin/Globulin Ratio 0.6 L Alcohol, Quantitative < 10 05/13/18 17:03 WBC RBC Hgb Hct MCV MCH MCHC RDW Plt Count MPV Neut % (Auto) Lymph % (Auto) [place] % (Auto) Eos % (Auto) Baso % (Auto) Neut # (Auto) Lymph # (Auto) [place] # (Auto) Eos # (Auto) Baso # (Auto) PT 14.7 H INR 1.3 Sodium Potassium Chloride Carbon Dioxide Anion Gap BUN Creatinine Est GFR ( Amer) Est GFR (Non-Af Amer) Random Glucose Calcium Total Bilirubin Direct Bilirubin AST ALT Alkaline Phosphatase Total Protein Albumin Globulin Albumin/Globulin Ratio Alcohol, Quantitative Assessment & Plan - Assessment and Plan (Free Text) Assessment: 43 year old female with PMH of 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 Active treatment of decompensated cirrhosis 2/2Endorses no prior EGD or colonoscopy. Plan: -MELD -05/12 large volume paracentesis 8-9.2 Liters -ordered albumin replacement of 50g today given large volume removed and likely consideration need for additional removal prior to discharge -renal function stable, continue to monitor -monitor sodium level, if less than Na 120, -will require 2L fluid restriction -on Lasix 40mg, spironolactone 100mg, titrate to provide appropriate diuresis and monitoring of electrolytes -counselled on low sodium diet, noncompliance at home -mild asterixis on exam, oriented x3 - started Lactulose daily, titrate to 2-3 BMs daily -ordered Hepatitis panel and autoimmune serologies -ordered Duplex U/S and U/S to evaluate for hepatic lesions, AFP -patient has established appointment with [facility] on 05/18/18 for ongoing liver pre- transplant clinic evaluation -may require repeat paracentesis for optimization prior to discharge, counselled on compliance to follow up appointment on 05/18/18 -will follow clinical course <Du Verdin - Last Filed: 05/13/18 18:56> Meds - Medications Medications: Current Medications Acetaminophen (Tylenol 325mg Tab) 650 mg PO Q6 PRN PRN Reason: Pain, moderate (4-7) Last Admin: 05/12/18 23:48 Dose: 650 mg Albumin Human (Albumin Human 25% (12.5 Gm/50 Ml)) 12.5 gm IV ONCE ONE Stop: 05/13/18 18:48 Ascorbic Acid (Vitamin C 250 Mg Tab) 250 mg PO DAILY [facility] Last Admin: 05/13/18 09:44 Dose: 250 mg Enoxaparin Sodium (Lovenox) 40 mg SC DAILY [facility] Last Admin: 05/12/18 09:27 Dose: 40 mg Folic Acid (Folic Acid) 1 mg PO DAILY [facility] Last Admin: 05/13/18 09:45 Dose: 1 mg Furosemide (Lasix) 40 mg PO DAILY [facility] Lactulose (Enulose) 20 gm PO HS [facility] Meclizine HCl (Antivert) 25 mg PO Q8 [facility] Last Admin: 05/13/18 13:41 Dose: 25 mg Nicotine (Nicoderm Cq) 1 patch TD DAILY [facility] Last Admin: 05/13/18 09:46 Dose: 1 patch Pantoprazole Sodium (Protonix Ec Tab) 40 mg PO DAILY [facility] Last Admin: 05/13/18 09:45 Dose: 40 mg Propranolol HCl (Inderal) 10 mg PO DAILY [facility] Last Admin: 05/13/18 09:46 Dose: Not Given Simethicone (Mylicon Chew Tab) 80 mg PO BID [facility] Last Admin: 05/13/18 17:24 Dose: Not Given Spironolactone (Aldactone) 50 mg PO BID [facility] Last Admin: 05/13/18 17:23 Dose: Not Given Vitamin B Complex/Folic Acid (Berroca) 1 tab PO DAILY [facility] Last Admin: 05/13/18 09:44 Dose: 1 tab Results - Vital Signs Recent Vital Signs: Last Vital Signs Temp 97.6 F 05/13/18 16:40 Pulse 91 H 05/13/18 16:40 Resp 20 05/13/18 16:40 BP 92/60 L 05/13/18 16:40 Pulse Ox 94 L 05/13/18 16:40 - Labs Result Diagrams: 05/13/18 07:38 05/13/18 07:38 Labs: Laboratory Results - last 24 hr 05/13/18 05/13/18 05/13/18 07:38 07:38 17:03 WBC 7.4 RBC 3.06 L Hgb 10.6 L Hct 31.2 L MCV 102.0 H MCH 34.6 H MCHC 33.9 RDW 18.7 H Plt Count 175 MPV 7.2 Neut % (Auto) 60.0 Lymph % (Auto) 27.0 [place] % (Auto) 11.2 H Eos % (Auto) 1.1 Baso % (Auto) 0.7 Neut # (Auto) 4.4 Lymph # (Auto) 2.0 [place] # (Auto) 0.8 Eos # (Auto) 0.1 Baso # (Auto) 0.0 PT INR Sodium 129 L Potassium 3.6 Chloride 100 Carbon Dioxide 25 Anion Gap 8 L BUN 18 H Creatinine 1.1 Est GFR ( Amer) > 60 Est GFR (Non-Af Amer) 54 Random Glucose 103 Calcium 8.3 L Iron 25 L TIBC 211 L % Saturation 12 L Transferrin Total Bilirubin 1.7 H Direct Bilirubin AST 108 H D ALT 67 H Alkaline Phosphatase 202 H D Total Protein 5.0 L Albumin 1.9 L D Globulin 3.1 Albumin/Globulin Ratio 0.6 L Alpha Fetoprotein Vitamin B12 Folate Salicylates Acetaminophen Alcohol, Quantitative Hepatitis A IgM Ab Hep Bs Antigen Hep B Core IgM Ab Hepatitis C Antibody 05/13/18 05/13/18 05/13/18 17:03 17:03 17:03 WBC RBC Hgb Hct MCV MCH MCHC RDW Plt Count MPV Neut % (Auto) Lymph % (Auto) [place] % (Auto) Eos % (Auto) Baso % (Auto) Neut # (Auto) Lymph # (Auto) [place] # (Auto) Eos # (Auto) Baso # (Auto) PT INR Sodium Potassium Chloride Carbon Dioxide Anion Gap BUN Creatinine Est GFR ( Amer) Est GFR (Non-Af Amer) Random Glucose Calcium Iron TIBC % Saturation Transferrin Total Bilirubin Direct Bilirubin 0.6 H AST ALT Alkaline Phosphatase Total Protein Albumin Globulin Albumin/Globulin Ratio Alpha Fetoprotein 6.2 Vitamin B12 814 Folate > 20.0 Salicylates Acetaminophen Alcohol, Quantitative < 10 Hepatitis A IgM Ab Negative Hep Bs Antigen Negative Hep B Core IgM Ab Negative Hepatitis C Antibody Negative 05/13/18 05/13/18 05/13/18 17:03 17:03 17:03 WBC RBC Hgb Hct MCV MCH MCHC RDW Plt Count MPV Neut % (Auto) Lymph % (Auto) [place] % (Auto) Eos % (Auto) Baso % (Auto) Neut # (Auto) Lymph # (Auto) [place] # (Auto) Eos # (Auto) Baso # (Auto) PT 14.7 H INR 1.3 Sodium Potassium Chloride Carbon Dioxide Anion Gap BUN Creatinine Est GFR ( Amer) Est GFR (Non-Af Amer) Random Glucose Calcium Iron TIBC % Saturation Transferrin 126.76 L Total Bilirubin Direct Bilirubin AST ALT Alkaline Phosphatase Total Protein Albumin Globulin Albumin/Globulin Ratio Alpha Fetoprotein Vitamin B12 Folate Salicylates < 1.0 Acetaminophen < 10.0 L Alcohol, Quantitative Hepatitis A IgM Ab Hep Bs Antigen Hep B Core IgM Ab Hepatitis C Antibody Attending/Attestation - Attestation I have personally seen and examined this patient.: Yes I have fully participated in the care of the patient.: Yes I have reviewed all pertinent clinical information: Yes Notes (Text): 05/13/18 18:50 I have seen and examined patient with GI fellow. Agree with above documentation with the following additions. In brief, this is a 43 year old female with history of ETOH decompensated cirrhosis (follows regularly at [facility]), depression, substance abuse, obesity s/p gastric bypass who presents to hospital with complaint of progressive abdominal distention for the past one week. She describes worsening distention along with lower extremity swelling during this time despite use of oral diuretic therapy. She claims to have stopped ETOH use since diagnosis in 2017 and denies abdominal pain, nausea, vomiting, fever/chills, weight loss, rectal bleeding, or change in bowel habits. She does note progressive dyspnea during the past week along with increased abdominal girth. No prior endoscopic evaluation. Decompensated ETOH cirrhosis, admission MELD 19 Ascites, s/p LVP yesterday with 8 liters fluid removed Depression Substance abuse - Low sodium diet as tolerated - Suggest albumin replacement therapy, continued monitoring of creatinine - Begin lactulose therapy for HE prevention - Abdominal US reviewed, no presence of PV thrombosis but significant willie-hep atic and abdominal ascites remains - would therefore consider repeat therapeutic paracentesis tomorrow - Continue with diuretic therapy, monitor electrolytes - Obtain hepatitis and autoimmune serologies - Patient has scheduled appointment at [facility]' liver clinic on May 18, will continue to monitor patient clinical course
[2018-05-13 17:43] LABS: % IRON SATURATION 12 (20-55); TOTAL IRON BINDING CAPACITY 211 ug/dL (250-450)
[2018-05-13 17:55] LABS: ACETAMINOPHEN < 10.0 ug/mL (10.0-30.0); SALICYLATE < 1.0 mg/dL 1
[2018-05-13 18:04] LABS: HEPATITIS B SURFACE AG Negative (NEGATIVE)
[2018-05-13 18:10] LABS: HEPATITIS A IGM NEGATIVE (NEGATIVE); HEPATITIS B CORE AB NEGATIVE (NEGATIVE)
[2018-05-13 18:22] LABS: HEPATITIS C ANTIBODY NEGATIVE (NEGATIVE)
[2018-05-13 18:45] LABS: FOLATE > 20.0 ng/mL
[2018-05-13] MEDS ORDERED: Albumin Human 25% (12.5 gm/50 ml) IV ONE (18:47)
--- NOTE | 2018-05-13 21:05 | CON ---
DATE: 05/13/2018 CHIEF COMPLAINT: Dizziness. HISTORY OF PRESENT ILLNESS: This is a 43-year-old woman with history of , chronic ascites gets tapped serially every few days, hypertension, who presents from the house for abdominal pain/abdominal distention and felt lightheaded in terms of getting up from sitting to standing position gets lightheaded as well as spinning sensation of the room. She mentions that certain neck movement she gets these sensations as well. She has a mild positional vertigo after my neuro assessment. CAT scan of the head showed no acute intracranial abnormalities. No focal neurological deficits seen on exam. The patient has ascites currently. She had low systolic and diastolic blood pressure initially as well. PAST MEDICAL HISTORY: As above. ALLERGIES: IODINE. FAMILY HISTORY: Noncontributory. SOCIAL HISTORY: Denies any illicit drug use, smoking, or EtOH abuse at this time. REVIEW OF SYSTEMS: A 14-point review of systems negative except in the HPI. PHYSICAL EXAMINATION: GENERAL: The patient is sitting up in bed, in no acute distress. VITAL SIGNS: Temperature 97.7, pulse rate 86, blood pressure 94/60, respiratory rate 20, oxygen saturation 96% on room air. HEENT: Head is atraumatic, normocephalic. PERRLA. Extraocular movements intact. NECK: Supple. No JVD. No adenopathy noted. LUNGS: Clear to auscultation. No adventitious sounds. HEART: S1, S2. Normal rate and rhythm. No murmurs, rubs or gallops. ABDOMEN: Distended and fluid thrill was present. Bowel sounds present. EXTREMITIES: Trace pedal edema. . NEUROLOGIC: The patient is alert, oriented to person, place, month and year. Speech is fluent without any errors. Cranial nerves II through XII are intact. Motor exam, moves all extremities, no pronator drift seen. Sensory: Light touch, pinprick, proprioception and, vibration are intact. DTRs are 2+ throughout. Toes are downgoing bilaterally. Coordination: [id number] intact. No dysmetria noted. Gait: She is able to walk around with a normal gait. LABORATORY DATA: Sodium is 129, potassium 3.6, chloride 100, carbon dioxide 25, BUN of 18, creatinine 1.1, random glucose of 103, total bili is 1.7, AST 108, ALT 67 and alkaline phosphatase 202, which is elevated. Albumin is low at 1.9, total protein is 5, which is low. IMPRESSION: Dizziness it seems most likely secondary to positional vertigo with underlying transient cerebral hypoperfusion from low systolic and diastolic blood pressures. PLAN: At this time recommend: 1. Keep blood pressure between 110s to 120s systolic and diastolic 70s to 80s. 2. Meclizine 25 mg orally three times a day at acute onset of dizziness as needed. 3. Outpatient vestibular therapy for dysequilibrium and dizziness vestibular in origin. 4. Continue with Gastroenterology's recommendation underlying ascites. Thank you for this consult. Vance Guerrier MD
[2018-05-14 02:03] LABS: BARBITURATES, UR NEGATIVE (NEGATIVE); BENZODIAZEPINES, UR NEGATIVE (NEGATIVE); OPIATES, UR NEGATIVE (NEGATIVE); PHENCYCLIDINE, UR NEGATIVE (NEGATIVE)
[2018-05-14 02:09] LABS: SQUAMOUS EPITHIAL 13 /hpf (0-5); URINE BACTERIA RARE (<OCC); URINE BILIRUBIN NEGATIVE (NEGATIVE); URINE BLOOD NEGATIVE (NEGATIVE); URINE CALCIUM OXALATE CRYSTALS MOD /hpf (<OCC); URINE CLARITY Hazy (Clear); URINE COLOR Amber (YELLOW); URINE GLUCOSE (UA) NORMAL (Normal); URINE LEUKOCYTE ESTERASE 1+ Leu/uL (Negative); URINE PROTEIN 1+ mg/dL (NEGATIVE)
[2018-05-14 07:29] LABS: BASO # 0.1 K/uL (0.0-0.2); BASO % 0.7 % (0.0-2.0); EOS # 0.1 K/uL (0.0-0.7); EOS % 1.2 % (0.0-4.0); HEMOGLOBIN 9.3 g/dL (11.0-16.0); LYMPH # 1.8 K/uL (1.0-4.3); LYMPH % 25.1 % (20.0-40.0); MEAN CELL VOLUME 103.1 fL (81.0-99.0); MEAN CORPUSCULAR HEMOGLOBIN 34.7 pg (27.0-31.0); MEAN CORPUSCULAR HGB CONC 33.6 g/dL (33.0-37.0); MEAN PLATELET VOLUME 7.6 fL (7.2-11.7); MONO # 0.8 K/uL (0.0-0.8); MONO % 11.2 % (0.0-10.0); NEUT # 4.4 K/uL (1.8-7.0); NEUT % 61.8 % (50.0-75.0); RBC 2.67 Mil/uL (3.80-5.20); RED CELL DISTRIBUTION WIDTH 18.7 % (11.5-14.5); WHITE BLOOD COUNT 7.1 K/uL (4.8-10.8)
[2018-05-14 07:38] LABS: INR 1.3; PROTHROMBIN TIME 14.3 SECONDS (9.7-12.2)
[2018-05-14 07:53] LABS: ALB/GLOB RATIO 0.9 (1.0-2.1); ALBUMIN 2.4 g/dL (3.5-5.0); ALT/SGPT 52 U/L (9-52); AST/SGOT 84 U/L (14-36); BLOOD UREA NITROGEN 17 mg/dL (7-17); CALCIUM 8.4 mg/dl (8.6-10.4); GFR NON-AFRICAN AMERICAN > 60
[2018-05-14 08:16] VITALS: BP 106/58; PULSE 100; TEMP 97.4
--- NOTE | 2018-05-14 09:12 | CP.PCM.PN ---
<Kristan Carlos - Last Filed: 05/14/18 11:02> Subjective - Date & Time of Evaluation Date of Evaluation: 05/14/18 Time of Evaluation: 09:10 - Subjective Subjective: Gastroenterology Fellow/PGY6 Progress Note Patient painting nails and laying comfortably in bed. Notes mild improvement of abdominal distension. Denies abdominal pain. One bowel movement yesterday. A 12- point review of systems negative except for as above. Objective - Vital Signs/Intake and Output Vital Signs (last 24 hours): Temp Pulse Resp BP Pulse Ox 97.4 F L 100 H 20 106/58 L 100 05/14/18 07:00 05/14/18 07:00 05/14/18 07:00 05/14/18 07:00 05/14/18 07:00 Intake and Output: 05/14/18 05/14/18 06:59 18:59 Intake Total 400 Output Total 400 Balance 0 - Medications Medications: Current Medications Acetaminophen (Tylenol 325mg Tab) 650 mg PO Q6 PRN PRN Reason: Pain, moderate (4-7) Last Admin: 05/12/18 23:48 Dose: 650 mg Ascorbic Acid (Vitamin C 250 Mg Tab) 250 mg PO DAILY [facility] Last Admin: 05/13/18 09:44 Dose: 250 mg Enoxaparin Sodium (Lovenox) 40 mg SC DAILY [facility] Last Admin: 05/12/18 09:27 Dose: 40 mg Folic Acid (Folic Acid) 1 mg PO DAILY [facility] Last Admin: 05/13/18 09:45 Dose: 1 mg Furosemide (Lasix) 40 mg PO DAILY [facility] Lactulose (Enulose) 20 gm PO HS [facility] Last Admin: 05/13/18 22:04 Dose: 20 gm Meclizine HCl (Antivert) 25 mg PO Q8 [facility] Last Admin: 05/14/18 06:12 Dose: 25 mg Nicotine (Nicoderm Cq) 1 patch TD DAILY [facility] Last Admin: 05/13/18 09:46 Dose: 1 patch Pantoprazole Sodium (Protonix Ec Tab) 40 mg PO DAILY [facility] Last Admin: 05/13/18 09:45 Dose: 40 mg Propranolol HCl (Inderal) 10 mg PO DAILY [facility] Last Admin: 05/13/18 09:46 Dose: Not Given Simethicone (Mylicon Chew Tab) 80 mg PO BID [facility] Last Admin: 05/13/18 17:24 Dose: Not Given Spironolactone (Aldactone) 50 mg PO BID [facility] Last Admin: 05/13/18 17:23 Dose: Not Given Vitamin B Complex/Folic Acid (Berroca) 1 tab PO DAILY [facility] Last Admin: 05/13/18 09:44 Dose: 1 tab - Labs Labs: 05/14/18 07:14 05/14/18 07:14 PT 14.3 SECONDS (9.7-12.2) H 05/14/18 07:14 INR 1.3 05/14/18 07:14 APTT 35 SECONDS (21-34) H 05/12/18 04:32 - Constitutional Appears: Non-toxic, No Acute Distress, Chronically Ill - Head Exam Head Exam: ATRAUMATIC, NORMOCEPHALIC - Eye Exam Eye Exam: EOMI, PERRL, Scleral icterus Pupil Exam: PERRL. absent: Miosis, Mydriatic - ENT Exam ENT Exam: Mucous Membranes Moist, Normal Oropharynx - Neck Exam Neck Exam: Full ROM, Normal Inspection - Respiratory Exam Respiratory Exam: Clear to Ausculation Bilateral. absent: Rales, Rhonchi, Wheezes - Cardiovascular Exam Cardiovascular Exam: RRR, +S1, +S2. absent: Gallop, Rubs - GI/Abdominal Exam GI & Abdominal Exam: Distended, Soft, Normal Bowel Sounds. 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 Active treatment of decompensated cirrhosis 2/2 asci ollie. Endorses no prior EGD or colonoscopy. Plan: -MELD -05/12 large volume paracentesis 8-9.2 Liters -05/13 received 50g albumin replacement -ordered for IR evaluation for repeat paracentesis - additional 6Liters removed today -renal function stable -on Lasix 40mg, spironolactone 100mg, monitor electrolytes -continue Lactulose daily for hepatic encephalopathy prevention given mild asterixis on exam, titrate to 2-3 BMs daily -counselled on low sodium diet -Hepatitis panel negative, pending autoimmune serologies -Duplex U/S and U/S preliminary read- no hepatic lesions or thrombosis, follow up final report -AFP 6.2 -patient has established appointment with [facility] on 05/18/18 for ongoing liver pre- transplant clinic evaluation and workup -counselled on compliance to liver transplant clinic appointment on 05/18/18 -okay for discharge from GI standpoint <Du Verdin - Last Filed: 05/14/18 11:37> Objective - Vital Signs/Intake and Output Vital Signs (last 24 hours): Temp Pulse Resp BP Pulse Ox 97.4 F L 100 H 20 106/58 L 96 05/14/18 07:00 05/14/18 07:00 05/14/18 07:00 05/14/18 07:00 05/14/18 09:45 Intake and Output: 05/14/18 05/14/18 06:59 18:59 Intake Total 400 Output Total 400 Balance 0 - Medications Medications: Current Medications Acetaminophen (Tylenol 325mg Tab) 650 mg PO Q6 PRN PRN Reason: Pain, moderate (4-7) Last Admin: 05/12/18 23:48 Dose: 650 mg Ascorbic Acid (Vitamin C 250 Mg Tab) 250 mg PO DAILY [facility] Last Admin: 05/14/18 10:58 Dose: 250 mg Enoxaparin Sodium (Lovenox) 40 mg SC DAILY [facility] Last Admin: 05/12/18 09:27 Dose: 40 mg Folic Acid (Folic Acid) 1 mg PO DAILY [facility] Last Admin: 05/14/18 11:01 Dose: 1 mg Furosemide (Lasix) 40 mg PO DAILY [facility] Last Admin: 05/14/18 11:01 Dose: Not Given Lactulose (Enulose) 20 gm PO HS [facility] Last Admin: 05/13/18 22:04 Dose: 20 gm Meclizine HCl (Antivert) 25 mg PO Q8 [facility] Last Admin: 05/14/18 06:12 Dose: 25 mg Nicotine (Nicoderm Cq) 1 patch TD DAILY [facility] Last Admin: 05/14/18 10:57 Dose: 1 patch Pantoprazole Sodium (Protonix Ec Tab) 40 mg PO DAILY [facility] Last Admin: 05/14/18 11:01 Dose: 40 mg Propranolol HCl (Inderal) 10 mg PO DAILY [facility] Last Admin: 05/14/18 11:01 Dose: Not Given Simethicone (Mylicon Chew Tab) 80 mg PO BID [facility] Last Admin: 05/14/18 11:01 Dose: 80 mg Spironolactone (Aldactone) 50 mg PO BID [facility] Last Admin: 05/14/18 11:02 Dose: Not Given Vitamin B Complex/Folic Acid (Berroca) 1 tab PO DAILY [facility] Last Admin: 05/14/18 10:57 Dose: 1 tab - Labs Labs: 05/14/18 07:14 05/14/18 07:14 PT 14.3 SECONDS (9.7-12.2) H 05/14/18 07:14 INR 1.3 05/14/18 07:14 APTT 35 SECONDS (21-34) H 05/12/18 04:32 Attending/Attestation - Attestation I have personally seen and examined this patient.: Yes I have fully participated in the care of the patient.: Yes I have reviewed all pertinent clinical information, including history, physical exam and plan: Yes Notes (Text): 05/14/18 11:35 I have seen and examined patient with GI fellow. No acute events overnight, she is seen ambulating in room and appears quite comfortable. s/p repeat paracentesis today with 6 liters removed. She denies abdominal pain, nausea, vomiting, fever/chills. Tolerating PO diet without difficulty. ETOH decompensated cirrhosis Ascites s/p LVP x 2, s/p albumin replacement therapy - Low sodium diet as tolerated - Creatinine improved, continue to monitor - Continue with diuretic therapy, monitor electrolytes - Continue with lactulose for HE prevention - Patient has upcoming appointment with [facility] liver clinic on May 18. No further planned GI intervention at this time, will sign off case. Please reconsult as necessary, thank you.
[2018-05-14] MEDS ORDERED: Lidocaine Hydrochloride 10 ML INJ ONE (09:26)
[2018-05-14 09:45] VITALS: O2SAT 96
--- NOTE | 2018-05-14 10:10 | US ---
Date of service: 05/13/2018 HISTORY: cirrhosis, evaluate portal system for thrombosis,eval for hep lesion COMPARISON: None. TECHNIQUE: Sonographic evaluation of the abdomen. FINDINGS: LIVER: Measures 16.1 cm. Heterogeneous with diffuse increased echogenicity of the liver parenchyma. Cirrhotic manifestation of the liver are also noted. No mass. No intrahepatic bile duct dilatation. GALLBLADDER: Diffuse gallbladder wall thickening noted likely due to presence of ascites and diffuse soft tissue edema. No evidence of cholelithiasis COMMON BILE DUCT: Measures 3 mm. No stones. No dilatation. PANCREAS: The visualized portion of the pancreas appear appears unremarkable. The pancreas partially obscured by overlying bowel gas. RIGHT KIDNEY: Measures 9.9 x 4.1 x 5cm. Normal echogenicity. mass, or hydronephrosis. There is a cortical calcification noted in the midpole of the right kidney measures 3 millimeter. LEFT KIDNEY: Measures 9.6 x 5.2 x 4.3cm. Normal echogenicity. No calculus, mass, or hydronephrosis. SPLEEN: Mildly enlarged measures up to 12 centimeter. AORTA: No aneurysmal dilatation. IVC: Unremarkable. OTHER FINDINGS: There is moderate to large amount of ascites in the abdomen. The ultrasound Doppler evaluation of the portal vein demonstrate patent portal vein without evidence of thrombosis. The hepatic veins are patent. IMPRESSION: Cirrhosis with findings suggestive of portal hypertension. Patent portal vein without ultrasound evidence of thrombosis. Moderate to large amount of ascites. 3 millimeter calcification in the right kidneys likely represent cortical calcification.
--- NOTE | 2018-05-14 10:31 | PCM.SURG1 ---
Surgeon's Initial Post Op Note - Surgeon's Notes Surgeon: Octaviano Razo MD Butane Compressor Operator: NONE Type of Anesthesia: Local Pre-Operative Diagnosis: Ascites, cirrhosis Operative Findings: US guided paracentesis Post-Operative Diagnosis: Ascites, cirrhosis Operation Performed: US guided paracentesis. Removal of 8 liters of clear fluid. Specimen/Specimens Removed: 8 liters of clear fluid Estimated Blood Loss: EBL {In ML}: 0 Blood Products Given: N/A Drains Used: No Drains Post-Op Condition: Fair Date of Surgery/Procedure: 05/14/18 Time of Surgery/Procedure: 10:25
[2018-05-14] MEDS: Pantoprazole 40 mg EC Tab PO SCH (11:01)
[2018-05-14] MEDS: Simethicone 80 mg Chewtab PO SCH (11:01)
--- NOTE | 2018-05-14 11:49 | US ---
Date of Procedure: 05/14/2018 PROCEDURE: Ultrasound-guided paracentesis, CPT 15696 Medications: 7 cc 1% Lidocaine HISTORY: Ascites, abdominal pain, cirrhosis TECHNIQUE: Following informed consent , the patient was placed supine on the stretcher and the site was marked. A limited abdominal ultrasound was performed that showed a large amount of intra-abdominal fluid. Procedural time out was called and the Pt's abdomen was marked and prepped and draped in the usual sterile fashion. Ultrasound-guided large volume paracentesis performed. A total of 6 liters of straw colored fluid was removed without complication. IMPRESSION: Ultrasound-guided large volume paracentesis.
--- NOTE | 2018-05-14 14:14 | CP.PCM.PN ---
Subjective - Date & Time of Evaluation Date of Evaluation: 05/14/18 Time of Evaluation: 14:14 - Subjective Subjective: PATIENT SEEN AND EXAMINED AT THE BEDSIDE Objective - Vital Signs/Intake and Output Vital Signs (last 24 hours): Temp Pulse Resp BP Pulse Ox 97.4 F L 100 H 20 106/58 L 96 05/14/18 07:00 05/14/18 07:00 05/14/18 07:00 05/14/18 07:00 05/14/18 09:45 Intake and Output: 05/14/18 05/14/18 06:59 18:59 Intake Total 400 Output Total 400 Balance 0 - Medications Medications: Current Medications Acetaminophen (Tylenol 325mg Tab) 650 mg PO Q6 PRN PRN Reason: Pain, moderate (4-7) Last Admin: 05/12/18 23:48 Dose: 650 mg Ascorbic Acid (Vitamin C 250 Mg Tab) 250 mg PO DAILY [facility] Last Admin: 05/14/18 10:58 Dose: 250 mg Enoxaparin Sodium (Lovenox) 40 mg SC DAILY [facility] Last Admin: 05/12/18 09:27 Dose: 40 mg Folic Acid (Folic Acid) 1 mg PO DAILY [facility] Last Admin: 05/14/18 11:01 Dose: 1 mg Furosemide (Lasix) 40 mg PO DAILY [facility] Last Admin: 05/14/18 11:01 Dose: Not Given Lactulose (Enulose) 20 gm PO HS [facility] Last Admin: 05/13/18 22:04 Dose: 20 gm Meclizine HCl (Antivert) 25 mg PO Q8 [facility] Last Admin: 05/14/18 13:33 Dose: 25 mg Nicotine (Nicoderm Cq) 1 patch TD DAILY [facility] Last Admin: 05/14/18 10:57 Dose: 1 patch Pantoprazole Sodium (Protonix Ec Tab) 40 mg PO DAILY [facility] Last Admin: 05/14/18 11:01 Dose: 40 mg Propranolol HCl (Inderal) 10 mg PO DAILY [facility] Last Admin: 05/14/18 11:01 Dose: Not Given Simethicone (Mylicon Chew Tab) 80 mg PO BID [facility] Last Admin: 05/14/18 11:01 Dose: 80 mg Spironolactone (Aldactone) 50 mg PO BID [facility] Last Admin: 05/14/18 11:02 Dose: Not Given Vitamin B Complex/Folic Acid (Berroca) 1 tab PO DAILY [facility] Last Admin: 05/14/18 10:57 Dose: 1 tab - Labs Labs: 05/14/18 07:14 05/14/18 07:14 PT 14.3 SECONDS (9.7-12.2) H 05/14/18 07:14 INR 1.3 05/14/18 07:14 APTT 35 SECONDS (21-34) H 05/12/18 04:32 Assessment and Plan - Assessment and Plan (Free Text) Assessment: FOLLOW UP WITH DR Magdalene LOBO IN HIS OFFICE -------CALL FOR APPOINTMENT FOLLOW UP WITH DR FREEMAN WALTERS OFFICE ------CALL FOR APPOINTMENT ADDRESS YOUR OUTPATIENT VESTIBULAR THERAPY AT YOUR VISIT FOLLOW UP WITH DR SANCHEZ IN HIS OFFICE ------CALL FOR APPOINTMENT CONTINUE HOME MEDICATION NEW PRESCRIPTION GIVEN LASIX PO AND MECLIZINE PER MED REC\ ACTIVITY TOLERATED CALL DR Magdalene LOBO OR GO TO THE EMERGENCY ROOM IF SYMPTOM RETURN OR WORSENING
[2018-05-14 17:11] LABS: BODY FLUID TYPE PERITONEAL
[2018-05-14 18:34] LABS: BF GROSS APPEARANCE SL CLOUDY (CLEAR); BODY FLUID MONO/MACROPHAGE 9 % (0-0); BODY FLUID TOTAL COUNT 100 (0-0)
--- NOTE | 2018-05-14 22:42 | CP.PCM.PN ---
Subjective - Date & Time of Evaluation Date of Evaluation: 05/14/18 Time of Evaluation: 13:15 - Subjective Subjective: s/p ascitic tapping twice pt understands pt said jignesh kapadia call family to pick her up Objective - Vital Signs/Intake and Output Vital Signs (last 24 hours): Temp Pulse Resp BP Pulse Ox 97.4 F L 100 H 20 106/58 L 96 05/14/18 07:00 05/14/18 07:00 05/14/18 07:00 05/14/18 07:00 05/14/18 09:45 Intake and Output: 05/14/18 05/15/18 18:59 06:59 Intake Total 500 Balance 500 - Labs Labs: 05/14/18 07:14 05/14/18 07:14 PT 14.3 SECONDS (9.7-12.2) H 05/14/18 07:14 INR 1.3 05/14/18 07:14 APTT 35 SECONDS (21-34) H 05/12/18 04:32 Assessment and Plan - Assessment and Plan (Free Text) Plan: Status post tapping twice Patient has an appointment to be seen Thursday at the [facility] for possible liver transplant Patient advised to maintain alcohol seizures and Medication described Patient advised to make an appointment with Dr. Verdin Patient advised to make an appointment Dr. Mckee Patient will be followed up at my office on Thursday around 3:00 All the details given Prescriptions given
== END 2018-05-14 18:20 | disposition home or self-care (01) | DRG 434 ==
LOC: C.ER 03:39 → C.9E 05:52 → C.5S 06:19 → OBSVTOIN 05-13 13:46
PROVIDERS: ADMIT Internal Medicine Nephrology; ATTEND Internal Medicine Nephrology
PROC: 0W9G3ZX Drainage of Peritoneal Cavity, Percutaneous Approach, Diagnostic (ICD-10-PCS; principal; 2018-05-13)
PROC: 0W9G3ZX Drainage of Peritoneal Cavity, Percutaneous Approach, Diagnostic (ICD-10-PCS; 2018-05-14)
DX: K70.31 Alcoholic cirrhosis of liver with ascites (principal); I10 Essential (primary) hypertension; F17.210 Nicotine dependence, cigarettes, uncomplicated; F32.9 Major depressive disorder, single episode, unspecified; Z98.84 Bariatric surgery status; Z91.5 Personal history of self-harm; Z87.01 Personal history of pneumonia (recurrent); D64.9 Anemia, unspecified; R26.81 Unsteadiness on feet; R60.9 Edema, unspecified; K71.3 Toxic liver disease with chronic persistent hepatitis; H81.10 Benign paroxysmal vertigo, unspecified ear; F10.21 Alcohol dependence, in remission